=== PATIENT | female | born 1950 | race Hispanic/Latino ===

== ENCOUNTER 2018-05-11 09:33 | Outpatient (CLI) | payer MEDICARE, OTHER ==
--- NOTE | 2018-05-11 12:26 | ULT ---
COMPLETE ABDOMEN ULTRASOUND: INDICATION: Abnormal LFTs. COMPARISON: None. FINDINGS: Visualized aspects of the pancreatic body appear within normal limits. No focal hepatic lesion is de monstrated. Right hepatic lobe measures 17.7 cm. There is a shadowing gallstone within a slightly c ontracted gallbladder. There is appropriate flow within the main portal vein. The common bile duct measured 3 mm. The gallbladder was mildly thickened measuring 3.4 mm; however, the gallbladder is mi ldly contracted. No pericholecystic fluid is demonstrated. No definite sonographic Girard's sign is reported. The right kidney demonstrates no focal renal lesion or hydronephrosis and measures 4.2 cm in length. The spleen measured 4.7 cm. The left kidney measured 4.4 cm. No hydronephrosis is evid ent. IMPRESSION: 1, Cholelithiasis without sonographic evidence of acute cholecystitis. 2. No additional sonographic abnormality. POS: [facility]
--- NOTE | 2018-05-11 13:42 | MMO ---
Bilateral MAMMO Bilat Screen [facility]. CLINICAL HISTORY: Patient is 67 years old and is seen for screening. The patient has the following family history of breast cancer: sister, at age 55 and maternal aunt. The patient has no personal history of cancer. VIEWS: The views performed were: bilateral craniocaudal with tomosynthesis and bilateral mediolateral oblique with tomosynthesis. FILMS COMPARED: The present examination has been compared to prior imaging studies performed at [facility] on 09/27/2005, 04/09/2007 and 04/14/2008. MAMMOGRAM FINDINGS: There are scattered fibroglandular densities. There are benign appearing calcifications seen in both breasts. There are no suspicious masses, calcifications or areas of architectural distortion. IMPRESSION: CALCIFICATIONS IN BOTH BREASTS ARE BENIGN. A ROUTINE FOLLOW-UP MAMMOGRAM IN 1 YEAR IS RECOMMENDED. THE RESULTS OF THIS EXAM WERE SENT TO THE PATIENT. ACR BI-RADS Category 2 - Benign finding MAMMOGRAPHY NOTE: 1. A negative mammogram report should not delay a biopsy if a dominant of clinically suspicious mass is present. 2. Approximately 10% to 15% of breast cancers are not detected by mammography. 3. Adenosis and dense breasts may obscure an underlying neoplasm.
== END 2018-05-11 09:34 | disposition home or self-care (01) ==
LOC: BICMAMMO 09:33
PROVIDERS: ATTEND Family Medicine
DX: Z12.31 Encounter for screening mammogram for malignant neoplasm of breast (principal); R94.5 Abnormal results of liver function studies; R94.30 Abnormal result of cardiovascular function study, unspecified; I10 Essential (primary) hypertension; R92.1 Mammographic calcification found on diagnostic imaging of breast; K80.20 Calculus of gallbladder without cholecystitis without obstruction; Z80.3 Family history of malignant neoplasm of breast
CPT/HCPCS: 76700; 77063; 77067

== ENCOUNTER 2018-06-09 19:52 | Inpatient (IN) | payer MEDICARE, OTHER ==
[~2018-06-09 19:52] MED LIST: ISOVUE-370 76%-LOCM 1 ML ONE
[2018-06-09 20:36] LABS: #Eosinphils 0.1 thou/uL (0.0-0.7); #Lymphocytes 1.6 thou/uL (1.20-3.40); #Neutrophils 12.9 thou/uL (1.40-6.50); %Basophils 0.2 % (0.0-1.0); %Eosinophils 0.5 % (0.0-10.0); %Monocytes 6.6 % (0.0-10.0); %Neutrophils 82.7 % (42.0-75.0); Hemoglobin 13.9 g/dL (12.0-16.0); Mean Corpuscular HGB CONC 32.6 g/dL (32.0-36.0); Mean Corpuscular Hemoglobin 29.2 pg (27.0-31.0); Mean Corpuscular Volume 89.6 fL (78.0-98.0); Platelet Count 265 thou/uL (130-400); RBC Distribution Width 12.7 % (11.5-14.5); Red Blood Cell (RBC) Count 4.74 mill/uL (4.20-5.40); White Blood Cell (WBC) Count 15.5 thou/uL (4.8-10.8)
[2018-06-09 20:59] LABS: ALT (SGPT) 52 U/L (8-55); AST (SGOT) 31 U/L (5-34); Albumin 4.2 g/dL (3.4-4.8); Alkaline Phosphatase 101 U/L (40-150); Anion Gap 11 mmol/L (10-20); BUN (Urea Nitrogen) 11 mg/dL (9.8-20.1); Bilirubin, Total 0.8 mg/dL (0.2-1.2); Calc. Creatinine Clearance 0 mL/min (70-130); Calcium 10.2 mg/dL (7.8-10.44); Carbon Dioxide 29 mmol/L (23-31); Chloride 96 mmol/L (98-107); Estimated GFR-MDRD 78; Globulin 4.3 g/dL (2.4-3.5); Glucose 132 mg/dL (80-115); Lipase 18 U/L (8-78); Potassium 4.1 mmol/L (3.5-5.1); Protein, Total 8.5 g/dL (6.0-8.3); Sodium 132 mmol/L (136-145)
[2018-06-09 23:08] LABS: Bilirubin Negative (Negative); Blood, Urine Negative (Negative); Clarity CLEAR (Clear); Glucose, Urine (Dipstick) Negative (Negative); Leukocyte Negative (Negative); Nitrite Negative (Negative); Protein, Urine (Dipstick) Negative (Neg-Trace); Specific Gravity, Urine 1.017 (1.002-1.036); Urobilinogen 0.2 mg/dL (0.2-1.0)
--- NOTE | 2018-06-09 23:14 | CT ---
CT ABDOMEN AND PELVIS WITH IV CONTRAST 06/09/18 HISTORY: Right lower quadrant pain. FINDINGS: The lung bases are clear. The liver, spleen, pancreas, adrenal glands and right kidney are normal. Th ere is a tiny nonobstructing left renal calculus. There is a calcified gallstone. No free air, free f luid or lymphadenopathy seen in the abdomen or pelvis. The uterus is present. The appendix is mildly dilated without intraluminal air with periappendiceal inflammatory changes. There are vascular calcifications without evidence of aneurysmal dilatation of the abdominal aorta. A small hiatal hernia is present. There are degenerative changes in the spine. IMPRESSION: Findings suspicious for acute appendicitis. Discussed over the telephone with Aimee Baker NP in the Emergency Room at 11:05 p.m. POS: [facility]
[2018-06-09] MEDS ORDERED: Morphine 4 MG/ML VIAL ONE (23:43)
[2018-06-09] MEDS ORDERED: Ondansetron PF 4 MG/2 ML Vial ONE (23:44)
[2018-06-09] MEDS ORDERED: Piperacillin/Tazobactam 4.5 GM VIAL ONE (23:44)
[2018-06-10] MEDS ORDERED: Piperacillin/Tazobactam 4.5 GM VIAL ONE (05:44)
[2018-06-10] MEDS ORDERED: Scopolamine 1.5 mg/72 hour Patch ONE (11:34)
[2018-06-10] MEDS ORDERED: Bupivacaine/Epinephrine 0.25% 30 ML VIAL ONE (11:45)
[2018-06-10] MEDS ORDERED: Piperacillin/Tazobactam 3.375 GM VIAL ONE (12:22)
[2018-06-10] MEDS ORDERED: Fentanyl 100 MCG/2 ML VIAL ONE (12:22)
--- NOTE | 2018-06-10 13:47 | HP ---
PRIMARY CARE PHYSICIAN: Massimo Grimes MD CHIEF COMPLAINT: Right lower quadrant abdominal pain. HISTORY OF PRESENT ILLNESS: The patient is a pleasant 67-year-old female. She noted onset of right lower quadrant abdominal pain yesterday at about noon. She presented last night to the emergency room for evaluation of this. CT scan was obtained revealing findings consistent with acute appendicitis. She is also noted to have a large calcified gallstone. Her laboratory studies revealed an elevated white blood cell count of 15.5 with a hemoglobin of 13.9. Metabolic panel revealed minor electrolyte abnormalities. Liver function tests were within normal limits. PAST MEDICAL HISTORY: Consistent with hypothyroidism, hypertension, diabetes mellitus, hypercholesterolemia, and seasonal allergies. PAST SURGICAL HISTORY: None. MEDICATIONS: Include; 1. Levothyroxine. 2. Lisinopril/hydrochlorothiazide. 3. Metformin. 4. Pravastatin. 5. Spironolactone/hydrochlorothiazide. 6. Montelukast. ALLERGIES: NO KNOWN DRUG ALLERGIES. PERSONAL AND SOCIAL HISTORY: She is single with one adult child. She lives by herself in [place]. She works in a daycare facility. She does not smoke. She drinks alcohol regularly on the weekends, but does not drink daily. REVIEW OF SYSTEMS: Ten system review was obtained, is otherwise negative. FAMILY HISTORY: Noncontributory. PHYSICAL EXAMINATION: VITAL SIGNS: She is afebrile with temperature 98.7, pulse is 86, and blood pressure 135/89. GENERAL: She is a well-developed, well-nourished, but obese, pleasant female, in no acute distress. She is alert and oriented x3. HEAD, EYES, EARS, NOSE, AND THROAT: Unremarkable. NECK: Supple without mass or tenderness. LUNGS: Clear to auscultation throughout. CARDIAC: Regular rate and rhythm without murmur. ABDOMEN: Soft with focal right lower quadrant tenderness. She also has some right upper quadrant discomfort with deeper palpation. EXTREMITIES: Unremarkable. ASSESSMENT AND PLAN: The patient with acute appendicitis. For this, I will recommend laparoscopic appendectomy. She also has a large calcified gallstone, for which I will recommend laparoscopic cholecystectomy simultaneously. I have discussed this with the patient. She understands and agrees to proceed with surgery at this time. Job ID: [id number]
[2018-06-10] MEDS ORDERED: Lidocaine 1% PF 5 ML VIAL ONE (13:59)
[2018-06-10] MEDS ORDERED: Dexamethasone 20 MG/5 ML VIAL ONE (13:59)
[2018-06-10] MEDS ORDERED: Rocuronium Bromide 10 MG/ML (10ML VIAL) ONE (13:59)
[2018-06-10] MEDS ORDERED: PHENYLEPHRINE-NS 100 MCG/ML 10 ML SYRINGE ONE (13:59)
[2018-06-10] MEDS ORDERED: Ondansetron PF 4 MG/2 ML Vial ONE (13:59)
[2018-06-10] MEDS ORDERED: PROPOFOL 200 MG/20 ML VIAL ONE (13:59)
[2018-06-10] MEDS ORDERED: Ketorolac Tromethamine 30 MG/ML VIAL ONE (13:59)
[2018-06-10] MEDS ORDERED: Glycopyrrolate 0.2 MG/ML 5 ML SYRINGE ONE (13:59)
--- NOTE | 2018-06-11 10:48 | OP ---
DATE OF PROCEDURE: 06/10/2018 PREOPERATIVE DIAGNOSES: Acute appendicitis, symptomatic cholelithiasis. POSTOPERATIVE DIAGNOSES: Acute appendicitis, symptomatic cholelithiasis. PROCEDURES PERFORMED: Laparoscopic cholecystectomy and laparoscopic appendectomy. ANESTHESIA: General endotracheal. INDICATIONS: The patient is a 67-year-old female. She presented to the hospital for evaluation of right lower quadrant abdominal pain. CT scan confirmed acute appendicitis. It also showed a large calcified gallstone. She was noted to have some mild right upper quadrant discomfort with palpation in the typical area of the gallbladder. I recommended cholecystectomy simultaneously with her appendectomy. DESCRIPTION OF OPERATION: Informed consent was obtained, the patient was taken to the operating room where general endotracheal anesthesia was obtained with the patient is supine position. Abdomen was prepped with ChloraPrep and draped in sterile fashion. Local anesthetic was infiltrated using 0.25% Marcaine with epinephrine. An 11-mm infraumbilical incision was created through which a Veress needle was passed in the peritoneal cavity. Pneumoperitoneum established using carbon dioxide up to pressure of 15 mmHg. An 11-mm trocar port was passed through the same incision and laparoscopic camera was passed through this port. Under direct vision, 3 additional 5 mm right upper quadrant ports were placed. Attention was turned to the gallbladder. This was grasped and retracted in a cephalad direction. Infundibulum was grasped and retracted laterally and inferiorly. Careful dissection was carried out to identify the cystic duct and cystic artery. The duct was small and noninflamed. Cholangiogram was not obtained. Both structures were divided between clips leaving 2 on the side to remain within the abdomen. The gallbladder was then dissected out of the gallbladder fossa using electrocautery, maintaining meticulous hemostasis. The gallbladder was grasped and removed through the umbilical port site. The fascial defect and the skin incision had to be enlarged somewhat to allow removal of the enlarged gallstone with the gallbladder. Attention was then turned to the right lower quadrant. I placed an additional 5 mm left lower quadrant port. The appendix was quickly identified and noted to be obviously inflamed and adherent to the anterior abdominal wall. The mesoappendix was grasped and divided at its base using electrocautery. The base of the appendix was skeletonized. It was divided between PDS endo-loops. The appendiceal stump was cauterized. The appendix was placed in a specimen retrieval sac and removed through the umbilical port site. The fascial defect of the umbilicus was closed with 0 Vicryl suture using a GraNee needle. The pelvis, right lower quadrant, and right upper quadrant were all inspected and irrigated. All irrigant was aspirated. All ports and instruments were removed under direct vision. Pneumoperitoneum was carefully evacuated. 0.25% Marcaine with epinephrine was infiltrated at each port site. Skin edges were approximated with 4-0 Monocryl subcuticular suture. Dermabond was placed externally. There were no complications. The patient tolerated the procedure well and was taken to recovery room in stable condition. Job ID: [id number]
== END 2018-06-10 15:58 | disposition home or self-care (01) | DRG 343 ==
LOC: ERS 19:52 → ERHOLD 23:23
PROVIDERS: ADMIT Specialist; ATTEND Specialist
PROC: 0DTJ4ZZ Resection of Appendix, Percutaneous Endoscopic Approach (ICD-10-PCS; principal; 2018-06-09)
PROC: 0FT44ZZ Resection of Gallbladder, Percutaneous Endoscopic Approach (ICD-10-PCS; 2018-06-09)
DX: K35.80 Unspecified acute appendicitis (principal); K80.80 Other cholelithiasis without obstruction; E03.9 Hypothyroidism, unspecified; E11.9 Type 2 diabetes mellitus without complications; I10 Essential (primary) hypertension; E78.00 Pure hypercholesterolemia, unspecified; Z79.84 Long term (current) use of oral hypoglycemic drugs
CPT/HCPCS: 36415; 74177; 80053; 81003; 83690; 85025; 88304; 96361; 96365; 96366; 96375; J1100; J1885; J2001; J2270; J2405; J2543; J2704; J3010; Q9966

== ENCOUNTER 2021-02-28 10:46 | Outpatient (CLI) | payer MEDICARE | END 2021-02-28 10:47 | disposition home or self-care (01) | LOC: BICMAMMO 10:46 | PROVIDERS: ATTEND Family Medicine | DX: Z12.31 Encounter for screening mammogram for malignant neoplasm of breast (principal); M85.9 Disorder of bone density and structure, unspecified; Z80.3 Family history of malignant neoplasm of breast; Z78.0 Asymptomatic menopausal state | CPT/HCPCS: 77063; 77067; 77080 ==

== ENCOUNTER 2022-03-14 10:25 | Outpatient (CLI) | payer MEDICARE | END 2022-03-14 10:26 | disposition home or self-care (01) | LOC: BICMAMMO 10:25 | PROVIDERS: ATTEND Family Medicine | DX: Z12.31 Encounter for screening mammogram for malignant neoplasm of breast (principal); Z80.3 Family history of malignant neoplasm of breast | CPT/HCPCS: 77063; 77067 ==

== ENCOUNTER 2023-02-02 02:41 | Inpatient (IN) | payer MEDICARE ==
[2023-02-02] MEDS ORDERED: Calcium Carbonate 500 MG ChewTAB PO PRN (03:02)
[2023-02-02] MEDS ORDERED: Ondansetron ODT 4 MG TAB PO PRN (03:02)
[2023-02-02 03:48] VITALS: BMI 36.1
[2023-02-02 06:42] LABS: #Eosinphils 0.2 thou/uL (0.0-0.7); #Monocytes 0.9 thou/uL (0.11-0.59); %Basophils 0.4 % (0.0-1.0); %Neutrophils 70.5 % (42.0-75.0); Hematocrit 34.8 % (36.0-47.0); Hemoglobin 12.5 g/dL (12.0-16.0); Mean Corpuscular HGB CONC 35.9 g/dL (32.0-36.0); Mean Corpuscular Volume 86.4 fl (78.0-98.0); Mean Platelet Volume 12.3 fL (7.4-10.4); Platelet Count 251 10x3/uL (130-400); RBC Distribution Width 15.9 % (11.5-14.5); Red Blood Cell (RBC) Count 4.03 mill/uL (4.20-5.40); White Blood Cell (WBC) Count 8.5 10x3/uL (4.8-10.8)
[2023-02-02 07:30] LABS: HBCM Index 0.06 S/CO (0-0.79); HBSAg Index 0.18 S/CO (0-0.99); Hep A IgM AB Non-Reactive S/CO (NonReactive); Hep A IgM S/CO 0.36 S/CO (0-0.79); Hep B Surf Ag Non-Reactive S/CO (NonReactive); Hep C IgG Ab Non-Reactive S/CO (NonReactive); Hep C Index 0.08 S/CO (0-0.79); Hepatitis B Core IgM Abs Non-Reactive S/CO (NonReactive)
[2023-02-02 08:08] LABS: ALT (SGPT) 144 U/L (8-55); AST (SGOT) 131 U/L (5-34); Albumin 3.4 g/dL (3.4-4.8); Alkaline Phosphatase 467 U/L (40-110); Anion Gap 13 mmol/L (10-20); BUN (Urea Nitrogen) 20 mg/dL (9.8-20.1); Bilirubin, Total 17.7 mg/dL (0.2-1.2); Calc. Creatinine Clearance 98 mL/min (70-130); Calcium 9.4 mg/dL (7.8-10.44); Carbon Dioxide 24 mmol/L (23-31); Chloride 86 mmol/L (98-107); Estimated GFR 82; Gamma GT (GGT) 939 U/L (9-36); Globulin 3.4 g/dL (2.4-3.5); Glucose 108 mg/dL (80-115); Iron 126 ug/dL (50-170); Iron Binding Capacity, Total 288 mcg/dL (265-497); Lipase 103 U/L (8-78); Potassium 3.8 mmol/L (3.5-5.1); Protein, Total 6.8 g/dL (5.8-8.1); Sodium 119 mmol/L (136-145)
[2023-02-02] MEDS ORDERED: Famotidine 20 MG TAB PO SCH ×2 (09:00→21:00)
[2023-02-02] MEDS ORDERED: HumaLOG 300 UNITS/3 ML VIAL SC PRN ×2 (10:09)
[2023-02-02] MEDS ORDERED: Glucagon 1 MG/ML KIT IM PRN (10:09)
[2023-02-02] MEDS ORDERED: Dextrose 5% in Water 1,000 ML IV PRN (10:09)
[2023-02-02] MEDS ORDERED: Dextrose 50% Abboject 50 ML SYRINGE SLOW IVP PRN (10:09)
[2023-02-02] MEDS ORDERED: Sodium Chloride 0.9% 1,000 ML IV SCH (10:15)
[2023-02-02 10:56] LABS: Anion Gap 15 mmol/L (10-20); BUN (Urea Nitrogen) 18 mg/dL (9.8-20.1); Calc. Creatinine Clearance 103 mL/min (70-130); Calcium 9.3 mg/dL (7.8-10.44); Carbon Dioxide 22 mmol/L (23-31); Chloride 87 mmol/L (98-107); Estimated GFR 87; Glucose 114 mg/dL (80-115); Potassium 3.6 mmol/L (3.5-5.1); Sodium 120 mmol/L (136-145)
[2023-02-02] MEDS ORDERED: Folic Acid 1 MG TAB PO SCH (11:45)
[2023-02-02] MEDS ORDERED: Electrolyte Replacement Protocol 1 EACH FS SCH (11:45)
[2023-02-02] MEDS ORDERED: Multivit, Therapeutic 1 TAB PO SCH (11:45)
[2023-02-02] MEDS ORDERED: Electrolyte Replacement Protocol FS PRN (12:00)
[2023-02-02 14:58] LABS: Anion Gap 15 mmol/L (10-20); BUN (Urea Nitrogen) 16 mg/dL (9.8-20.1); Calc. Creatinine Clearance 109 mL/min (70-130); Carbon Dioxide 21 mmol/L (23-31); Chloride 89 mmol/L (98-107); Estimated GFR 93; Glucose 108 mg/dL (80-115); Potassium 3.6 mmol/L (3.5-5.1); Sodium 121 mmol/L (136-145)
[2023-02-02 16:06] VITALS: BP 115/66; TEMP 97.9
[2023-02-02 18:32] LABS: Anion Gap 16 mmol/L (10-20); BUN (Urea Nitrogen) 15 mg/dL (9.8-20.1); Calc. Creatinine Clearance 102 mL/min (70-130); Calcium 9.4 mg/dL (7.8-10.44); Carbon Dioxide 23 mmol/L (23-31); Chloride 87 mmol/L (98-107); Estimated GFR 86; Glucose 120 mg/dL (80-115); Potassium 3.7 mmol/L (3.5-5.1); Sodium 122 mmol/L (136-145)
[2023-02-03] MEDS ORDERED: Levothyroxine 150 MCG TAB PO SCH (06:00)
[2023-02-03] MEDS ORDERED: Folic Acid 1 MG TAB PO SCH (09:00)
[2023-02-03] MEDS ORDERED: Multivit, Therapeutic 1 TAB PO SCH (09:00)
[2023-02-03] MEDS ORDERED: Aspirin Chewable 81 MG TAB PO SCH (09:00)
[2023-02-03] MEDS ORDERED: Thiamine 100 MG TAB PO SCH (12:00)
[2023-02-05] MEDS ORDERED: Lorazepam 0.5 MG TAB PO PRN (11:37)
== END 2023-02-02 20:17 | disposition short-term general hospital (02) | DRG 442 ==
LOC: T4-A 02:55
PROVIDERS: ADMIT Student in an Organized Health Care Education/Training Program; ATTEND Nurse Practitioner Family
DX: E80.6 Other disorders of bilirubin metabolism (principal); E87.1 Hypo-osmolality and hyponatremia; R74.01 Elevation of levels of liver transaminase levels; I10 Essential (primary) hypertension; E78.5 Hyperlipidemia, unspecified; E03.9 Hypothyroidism, unspecified; E11.9 Type 2 diabetes mellitus without complications; F10.90 Alcohol use, unspecified, uncomplicated; F17.210 Nicotine dependence, cigarettes, uncomplicated; Z79.82 Long term (current) use of aspirin; Z79.890 Hormone replacement therapy; Z90.49 Acquired absence of other specified parts of digestive tract
CPT/HCPCS: 36415; 36416; 74181; 80053; 80074; 82977; 83540; 83550; 83690; 85025; J7050

== ENCOUNTER 2023-05-23 13:28 | Outpatient (CLI) | payer MEDICARE ==
[~2023-05-23 13:28] MED LIST changes: -ISOVUE-370 76%-LOCM 1 ML ONE; +Iopamidol 370 76% 100 ML VIAL ONE
== END 2023-05-23 13:29 | disposition home or self-care (01) ==
LOC: BICCT 13:28
PROVIDERS: ATTEND Surgery Surgical Oncology
DX: C25.9 Malignant neoplasm of pancreas, unspecified (principal); K83.8 Other specified diseases of biliary tract; Z90.49 Acquired absence of other specified parts of digestive tract
CPT/HCPCS: 71260; 74178; Q9967

== ENCOUNTER 2023-09-05 09:08 | Outpatient (CLI) | payer MEDICARE ==
[2023-09-05] MEDS ORDERED: Iopamidol 30 ML ONE (09:23)
== END 2023-09-05 09:09 | disposition home or self-care (01) ==
LOC: RAD 09:08
PROVIDERS: ATTEND Internal Medicine Hematology & Oncology
PROC: 02WY33Z Revision of Infusion Device in Great Vessel, Percutaneous Approach (ICD-10-PCS; principal; 2023-09-05)
DX: T82.594A Other mechanical complication of infusion catheter, initial encounter (principal); T82.848A Pain due to vascular prosthetic devices, implants and grafts, initial encounter; C25.9 Malignant neoplasm of pancreas, unspecified; Y82.8 Other medical devices associated with adverse incidents
CPT/HCPCS: 36598; J1642; Q9967

== ENCOUNTER 2023-10-23 10:18 | Day surgery (SDC) | payer MEDICARE ==
[2023-10-23] MEDS ORDERED: diphenhydrAMINE 25 MG CAP PO SCH (11:00)
[2023-10-23] MEDS ORDERED: Acetaminophen 500 MG TAB ONE (11:37)
[2023-10-23] MEDS: Acetaminophen 500 MG TAB PO SCH (11:38)
[2023-10-23 16:19] VITALS: BP 129/59; TEMP 98
== END 2023-10-23 16:25 | disposition home or self-care (01) ==
LOC: ONC/OP 10:18
PROVIDERS: ATTEND Internal Medicine Hematology & Oncology
DX: D64.9 Anemia, unspecified (principal); D69.6 Thrombocytopenia, unspecified
CPT/HCPCS: 36430; 36591; 86850; 86900; 86901; 86920; J1642; P9016

== ENCOUNTER 2023-12-05 10:13 | Day surgery (SDC) | payer MEDICARE ==
[2023-12-05] MEDS: Sodium Chloride 0.9% 1,000 ML IV SCH (10:28)
[2023-12-05] MEDS ORDERED: FLU (Fluad Triv) TS24-25 (65UP)/MF59C/PF 45 MCG/0.5 ML Syringe IM ONE (12:00)
[2023-12-05] MEDS ORDERED: diphenhydrAMINE 25 MG CAP ONE (12:13)
[2023-12-05] MEDS ORDERED: Acetaminophen 500 MG TAB ONE (12:13)
[2023-12-05] MEDS: diphenhydrAMINE 25 MG CAP PO SCH (12:14)
[2023-12-05] MEDS: Acetaminophen 500 MG TAB PO SCH (12:14)
[2023-12-05 13:28] VITALS: BP 126/60; TEMP 97.5
== END 2023-12-05 13:02 | disposition home or self-care (01) ==
LOC: ONC/OP 10:13
PROVIDERS: ATTEND Internal Medicine
DX: D64.9 Anemia, unspecified (principal); D69.6 Thrombocytopenia, unspecified; C25.3 Malignant neoplasm of pancreatic duct; R30.0 Dysuria
CPT/HCPCS: 36430; 86850; 86900; 86901; 96360; J1642; P9035; 36415; 80053; 82248; 83615; 84100; 84550

== ENCOUNTER 2023-12-08 12:40 | Day surgery (SDC) | payer MEDICARE ==
[2023-12-08] MEDS ORDERED: Acetaminophen 500 MG TAB PO SCH (13:00)
[2023-12-08] MEDS ORDERED: diphenhydrAMINE 25 MG CAP PO SCH (13:00)
[2023-12-08] MEDS: Acetaminophen 500 MG TAB ONE (13:07)
[2023-12-08] MEDS ORDERED: FLU (Fluad Triv) TS24-25 (65UP)/MF59C/PF 45 MCG/0.5 ML Syringe IM ONE (15:00)
[2023-12-08 16:15] VITALS: BP 119/56; TEMP 98.1
== END 2023-12-08 16:15 | disposition home or self-care (01) ==
LOC: ONC/OP 12:40
PROVIDERS: ATTEND Internal Medicine Hematology & Oncology
DX: D64.9 Anemia, unspecified (principal); D69.6 Thrombocytopenia, unspecified
CPT/HCPCS: 36430; 86850; 86900; 86901; 86920; J1642; P9016